=== PATIENT | male | born 1965 | race Caucasian/White ===

== ENCOUNTER 2023-07-29 15:23 | Emergency (ER) | payer BC ==
--- NOTE | 2023-07-29 15:35 | ED ---
Lower Extremity Injury HPI - General Source: patient, RN notes reviewed Mode of arrival: ambulatory Limitations: no limitations <Papo Verduzco - Last Filed: 07/29/23 15:34> - General Source: patient, RN notes reviewed Mode of arrival: ambulatory Limitations: no limitations - History of Present Illness MD Complaint: knee injury <Carmina Vazquez - Last Filed: 07/29/23 21:44> - General Chief Complaint: Extremity Injury, Lower Stated Complaint: left knee pain Time Seen by Provider: 07/29/23 15:34 - History of Present Illness Initial Comments: 57-year-old male presents emergency Department chief complaint of left knee pain. Patient states he was stepping down off a curb when he felt his knee pop. Patient states that the pain is in the front of his knee. Patient states he has had surgery on his left knee in the past. (Papo Verduzco) This is a 49-year-old male who presents to the emergency department for left knee pain. States that he went to step off of a curb, when he heard a pop, followed by severe pain. Describes the pain as primarily being around the patella. He previously had surgery with Dr. Yates, orthopedics, on that knee. He has not been able to walk easily since this occurred. (Carmina Vazquez) - Related Data Previous Rx's Medication Instructions Recorded HYDROcodone/APAP 5-325MG [[place] 1 tab PO Q6HR PRN 3 Days #12 tab 07/29/23 5-325] Ibuprofen [Motrin] 800 mg PO Q8H PRN #30 tab 07/29/23 Allergies Allergy/AdvReac Type Severity Reaction Status Date / Time No Known Allergies Allergy Verified 07/29/23 15:33 Review of Systems ROS Other: All systems not noted in ROS Statement are negative. <Papo Verduzco - Last Filed: 07/29/23 15:34> ROS Other: All systems not noted in ROS Statement are negative. <Carmina Vazquez - Last Filed: 07/29/23 21:44> ROS Statement: Those systems with pertinent positive or pertinent negative responses have been documented in the HPI. Past Medical History Past Medical History: No Reported History History of Any Multi-Drug Resistant Organisms: None Reported Past Surgical History: Hernia Repair, Orthopedic Surgery Smoking Status: Never smoker Past Alcohol Use History: None Reported Past Drug Use History: None Reported <Papo Verduzco - Last Filed: 07/29/23 15:34> General Exam Limitations: no limitations General appearance: alert, in no apparent distress Head exam: Present: atraumatic, normocephalic, normal inspection Neck exam: Present: normal inspection, full ROM. Absent: tenderness, meningismus, lymphadenopathy <Papo Verduzco - Last Filed: 07/29/23 15:34> Limitations: no limitations General appearance: alert, in no apparent distress Head exam: Present: atraumatic, normocephalic, normal inspection Respiratory exam: Present: normal lung sounds bilaterally. Absent: respiratory distress, wheezes, rales, rhonchi, stridor Cardiovascular Exam: Present: regular rate, normal rhythm, normal heart sounds. Absent: systolic murmur, diastolic murmur, rubs, gallop, clicks Extremities exam: Present: other (Tenderness to palpation over the left patella. Range of motion limited by pain. No overlying swelling or deformities. 2+ DP and PT pulses. Capillary refill less than 1 second.) Neurological exam: Present: alert, oriented X3, CN II-XII intact Psychiatric exam: Present: normal affect, normal mood Skin exam: Present: warm, dry, intact, normal color. Absent: rash <Carmina Vazquez - Last Filed: 07/29/23 21:44> - General Exam Comments Initial Comments: Visual Physical Exam Vital signs reviewed General: Well-appearing, nontoxic, no acute distress. Head: Normocephalic, atraumatic Eyes: PERRLA, EOMI ENT: Airway patent Chest: Nonlabored breathing Skin: No visual rash, normal skin tone Neuro: Alert and oriented 3 Musculoskeletal: No gross abnormalities (Papo Verduzco) Course Vital Signs 07/29/23 07/29/23 15:30 20:00 Temperature 98 F Pulse Rate 80 78 Respiratory 16 18 Rate Blood Pressure 193/91 133/91 O2 Sat by Pulse 98 95 Oximetry Medical Decision Making <Papo Verduzco - Last Filed: 07/29/23 15:34> - Radiology Data Radiology results: report reviewed, image reviewed <Carmina Vazquez - Last Filed: 07/29/23 21:44> - Medical Decision Making I completed the quick note portion of this chart signed Papo Verduzco PA-C (Papo Verduzco) This is a 57-year-old male who presents to the emergency department for left knee pain. Was pt. sent in by a medical professional or institution? @ -No Did you speak to anyone other than the patient for history? @ -No Did you review nursing and triage notes? @ -Yes, and I agree, it is accurate with regards to the patient's symptoms. Were old charts reviewed? @ -No Differential Diagnosis? @ -Differential Musculoskeletal: Muscular strain, contusion, ligament sprain, fracture, arthritis, septic arthritis, bursitis, cellulitis, muscle spasm, nerve compression, DVT, arterial occlusion, herpes zoster, electrolyte abnormality, tumor.... This is not meant to be in all inclusive list EKG interpreted by me (3pts min.)? @ -Not obtained X-rays interpreted by me (1pt min.)? @ -X-ray of the left knee obtained. My interpretation identifies no acute fractures. CT interpreted by me (1pt min.)? @ -Not obtained U/S interpreted by me (1pt. min.)? @ -Not obtained What testing was considered but not performed? (CT, X-rays, U/S, labs)? Why? @ -None What meds were considered but not given? Why? @ -None Did you discuss the management of the patient with other professionals? @ -No Did you reconcile home meds? @ -No Was smoking cessation discussed for >3mins.? @ -No Was critical care preformed (if so, how long)? @ -No Were there social determinants of health that impacted care today? How? (Homelessness, low income, unemployed, alcoholism, drug addiction, transportation, low edu. Level, literacy, decrease access to med. care, care home, rehab)? @ -No Was there de-escalation of care discussed even if they declined? (Discuss DNR or withdrawal of care, Hospice)? @ -No What co-morbidities impacted this encounter? (DM, HTN, Smoking, COPD, CAD, Cancer, CVA, Hep., AIDS, mental health diagnosis, sleep apnea, morbid obesity)? @ -None Was patient admitted / discharged? @ -Discharged. X-ray of the left knee obtained revealing no acute process. We discussed that this does not exclude the possibility of problems with ligaments or his meniscus. Patient's pain was well-controlled in the emergency department and he was given a knee immobilizer. He was able to ambulate afterwards. Prescription for ibuprofen and [place] provided with dosing instructions reviewed. He is advised to take the [place] sparingly when his pain is the most severe and to otherwise alternate with Tylenol. He is also advised to follow-up with Dr. Yates, orthopedics for further evaluation. Undiagnosed new problem with uncertain prognosis? @ -None Drug Therapy requiring intensive monitoring for toxicity (Heparin, Nitro, Insulin, Cardizem)? @ -None Were any procedures done? @ -None Diagnosis/symptom? @ -Left knee sprain Acute, or Chronic, or Acute on Chronic? @ -Acute Uncomplicated (without systemic symptoms) or Complicated (systemic symptoms)? @ -Uncomplicated Side effects of treatment? @ -None Exacerbation, Progression, or Severe Exacerbation] @ -Not applicable Poses a threat to life or bodily function? @ -This may have an impact on his ability to ambulate for the mean time. Return precautions reviewed in depth, the patient is instructed to return to the emergency department with any new, worsening, or concerning symptoms. Patient verbalized understanding. This case was discussed in detail with the attending ED physician, Dr. Orozco. Presentation, findings, and treatment plan discussed in detail as well. (Carmina Vazquez) Disposition <Papo Verduzco - Last Filed: 07/29/23 15:34> Is patient prescribed a controlled substance at d/c from ED?: Yes When asked, does pt state using other controlled substances?: No If prescribed controlled substance>3 days was MAPS reviewed?: Prescribed <3 Days <Carmina Vazquez - Last Filed: 07/29/23 21:44> Clinical Impression: Left knee sprain Disposition: HOME SELF-CARE Instructions (If sedation given, give patient instructions): Knee Sprain (ED), Knee Pain (ED) Additional Instructions: Return to the emergency department with any new, worsening, or concerning symptoms. Alternate with ibuprofen and Tylenol as needed for pain relief. Take the [place] sparingly when your pain is the most severe and be aware that it may make you drowsy. Contact Dr. Yates, orthopedics, for follow-up appointment. Prescriptions: Ibuprofen [Motrin] 800 mg PO Q8H PRN #30 tab PRN Reason: Pain HYDROcodone/APAP 5-325MG [[place] 5-325] 1 tab PO Q6HR PRN 3 Days #12 tab PRN Reason: Pain Referrals: None,Stated [Primary Care Provider] - 1-2 days Seamus Yates MD [STAFF PHYSICIAN] - 1-2 days Forms: Work/School Release
[2023-07-29 15:44] VITALS: TEMP 98
--- NOTE | 2023-07-29 16:00 | XR ---
EXAMINATION TYPE: XR knee complete LT DATE OF EXAM: 07/29/2023 COMPARISON: NONE HISTORY: Pain TECHNIQUE: Three views are submitted. FINDINGS: Severe narrowing of the medial compartment and patellofemoral compartment and the joint space with sp urring. No erosive changes. Osseous structures are intact. No acute fracture seen. IMPRESSION: 1. No acute fracture or dislocation. 2. Severe osteoarthritis.
[2023-07-29] MEDS ORDERED: HYDROcodone/APAP 7.5-325MG 1 EACH TAB PO ONE (19:15)
[2023-07-29] MEDS ORDERED: DEXAMETHASONE SOD PHOSPHATE 10 MG/ML 1 ML VIAL IM STA (19:15)
[2023-07-29] MEDS ORDERED: KETOROLAC 15 MG/ML 1 ML VIAL IM STA (19:15)
[2023-07-29 21:10] VITALS: BP 133/91; PULSE 78; RESP 18
== END 2023-07-29 20:59 | disposition home or self-care (01) ==
LOC: EC 15:23
DX: S83.92XA Sprain of unspecified site of left knee, initial encounter (principal); W10.8XXA Fall (on) (from) other stairs and steps, initial encounter
CPT/HCPCS: 73562; 99283; 96372 ×2; L1830; J1100; J1885

== ENCOUNTER → 2023-10-16 | Outpatient (CLI) | payer BC ==
[2023-10-16 18:59] LABS: HCT 48.3 % (39.6-50.0); HGB 15.5 g/dL (13.0-17.0); MCH 26.9 pg (27.0-32.0); MCHC 32.1 g/dL (32.0-37.0); MCV 83.9 FL (80.0-97.0); Mean Platelet Volume 8.9 FL (9.5-12.2); NRBC Per 100 WBC 0 X 10*3/uL (0.00-0.01); Platelet Count 272 X 10*3/uL (140-440); RBC 5.76 X 10*6/uL (4.40-5.60); RDW 14.3 % (11.5-14.5); WBC 7.78 X 10*3/uL (4.50-10.00)
[2023-10-16 20:19] LABS: ALT 23 U/L (10-49); AST 18 U/L (14-35); Albumin 4.1 g/dL (3.8-4.9); Albumin/Globulin Ratio 1.64 Ratio (1.60-3.17); Alkaline Phosphatase 95 U/L (41-126); BUN/Creat Ratio 22.09 Ratio (12.00-20.00); Blood Urea Nitrogen 24.3 mg/dL (9.0-27.0); Calcium 9.7 mg/dL (8.7-10.3); Carbon Dioxide 21.8 mmol/L (21.6-31.8); Chloride 104 mmol/L (96-109); Globulin 2.5 g/dL (1.6-3.3); Glucose 127 mg/dL (70-110); Potassium 4.4 mmol/L (3.5-5.5); Sodium 139 mmol/L (135-145); Total Bilirubin 0.2 mg/dL (0.3-1.2); Total Protein 6.6 g/dL (6.2-8.2)
== END | disposition home or self-care (01) ==
LOC: LABWHC1 14:27
PROVIDERS: ATTEND Surgery Plastic and Reconstructive Surgery
DX: Z01.89 Encounter for other specified special examinations (principal)
CPT/HCPCS: 36415; 80053; 85027; 93005

== ENCOUNTER 2023-11-05 12:40 | Day surgery (SDC) | payer BC ==
[~2023-11-05 12:40] MED LIST: ONDANSETRON 4 MG/2 ML VIAL IVP PRN
--- NOTE | 2023-11-05 13:08 | P.GSHP ---
History of Present Illness H&P Date: 11/05/23 CHIEF COMPLAINT: Ventral hernia HISTORY OF PRESENT ILLNESS: The patient is a 57-year-old male presents with a history of swelling and pain along the abdomen from a hernia of the abdomen. Symptoms have been present for over 1 year months. Now he presents for surgical intervention. PAST MEDICAL HISTORY: Please see list. PAST SURGICAL HISTORY: Please see list. MEDICATIONS: Please see list. ALLERGIES: Please see list. SOCIAL HISTORY: No illicit drug use FAMILY HISTORY: No reports of Crohn disease or ulcerative colitis. REVIEW OF ORGAN SYSTEMS: CONSTITUTIONAL: Denies any fever or chills. Has morbid obesity, BMI 51.7 Has morbid obesity, BMI 51.7 HEENT: Denies any trouble with vision, hearing or nosebleeds. No difficulty swallowing. LYMPHATIC: The patient denies any lumps and bumps around the neck. ENDOCRINE: Denies any thyroid disorders. Denies any blood sugar glucose intolerance. RESPIRATORY: Denies pneumonia. Denies any troubles with breathing or dyspnea on exertion. CARDIOVASCULAR: Denies any chest pain, palpitations, or recent heart attacks. GASTROINTESTINAL: Denies heart burn, constipation or bright red blood per rectum. GENITOURINARY: Denies any blood in urine or increased urinary frequency. MUSCULOSKELETAL: Denies any back pain, stiffness, joint arthritis. NEUROLOGIC: Denies any numbness or tingling along the distal extremities. No seizure disorders or headaches. PSYCHIATRIC: Denies depression or suidical ideation. HEMATOLOGIC: Denies any abnormal bleeding or bruising. BREASTS: Denies any breast lumps, pain or nipple discharge. PHYSICAL EXAM: GENERAL: Well-developed pleasant male in no acute distress. HEENT: No scleral icterus. Extraocular movements grossly intact. Moist buccal mucosa. NECK: Supple without lymphadenopathy. CHEST: Unlabored respirations. Equal bilateral excursions. CARDIOVASCULAR: Regular rate and rhythm. Distal 2+ pulses. ABDOMEN: Soft, nondistended. Palpable defect of the abdomen. No peritoneal signs. MUSCULOSKELETAL: No clubbing, cyanosis, or edema. SKIN: Well perfused. PSYCH: Alert and oriented to self, place and time ASSESSMENT: 1. Ventral hernia 2. Morbid obesity due to excess calories, BMI 51.7 PLAN: 1. Recommend proceeding with robotic ventral hernia repair with mesh. 2. Benefits and risks of surgical intervention was discussed including possibility of open technique. 3. DVT prophylaxis. 4. Antibiotic prophylaxis. 5. Non narcotic pain management including abdominal wall block described 6. Blood sugar glucose described. 7. Weight loss management described. 8. He is elevated risk due to comorbidities and BMI over 40 Past Medical History Past Medical History: No Reported History Additional Past Medical History / Comment(s): piece of tissue under liver that caused internal bleeding at age 17, incisional hernia from laparotomy, Lt. knee injury 07/23 History of Any Multi-Drug Resistant Organisms: None Reported Past Surgical History: Orthopedic Surgery Additional Past Surgical History / Comment(s): laparotomy, Lt. knee arthrosopy x 2 Past Anesthesia/Blood Transfusion Reactions: Postoperative Nausea & Vomiting (PONV) Smoking Status: Never smoker - Past Family History Mother Family Medical History: Cancer Additional Family Medical History / Comment(s): lung,brain cancer Father Family Medical History: Cancer Additional Family Medical History / Comment(s): liver Medications and Allergies Home Medications Medication Instructions Recorded Confirmed Type HYDROcodone/APAP 5-325MG [[place] 1 tab PO Q6HR PRN 3 Days #12 tab 07/29/23 10/30/23 Rx 5-325] Ibuprofen [Motrin] 800 mg PO Q8H PRN #30 tab 07/29/23 10/30/23 Rx Allergies Allergy/AdvReac Type Severity Reaction Status Date / Time No Known Allergies Allergy Verified 07/29/23 15:33
[2023-11-05] MEDS: LACTATED RINGERS 1,000 ML IV SCH (13:13)
[2023-11-05] MEDS: DEXAMETHASONE SOD PHOSPHATE 4 MG/ML 1 ML VIAL IV ONE (13:22)
[2023-11-05] MEDS: ACETAMINOPHEN TAB 500 MG TAB PO PRN (13:22)
[2023-11-05] MEDS: TAMSULOSIN 0.4 MG CAP.ER.24H PO STA (13:23)
[2023-11-05] MEDS: MELOXICAM 7.5 MG TAB PO PRN (13:23)
[2023-11-05] MEDS: ONDANSETRON 4 MG/2 ML VIAL IVP ONE (13:23)
[2023-11-05] MEDS: FAMOTIDINE 20 MG/2 ML VIAL IVP ONE (13:51)
[2023-11-05] MEDS: MIDAZOLAM 2 MG/2 ML VIAL IVP ONE (13:57)
[2023-11-05] MEDS: fentaNYL (PF) 50 MCG/ML 2 ML AMP IVP ONE ×2 (14:00→14:04)
[2023-11-05] MEDS: HEPARIN SODIUM,PORCINE 5,000 UNIT/ML 1 ML VIAL SQ PRN (14:16)
--- NOTE | 2023-11-05 14:21 | P.ANPRN ---
Procedure Note - Anesthesia - Nerve Block Performed Bilateral Erector Spinae Single Time Out Performed: Yes Date of Procedure: 11/05/23 Procedure Start Time: 13:56 Procedure Stop Time: 14:03 Location of Patient: PreOp Indication: Acute Post-Operative Pain, Analgesia, Requested by Surgeon Sedation Type: Sedate with meaningful contact maintained Preparation: Sterile Prep Position: Prone Catheter: None Needle Types: Pajunk Needle Gauge: 21 Ultrasound used to visualize needle placement: Yes Ultrasound used to observe medication spread: Yes Injectate: 0.5% Ropivacaine (see comment for volume) (Ropiv 20 ml + decadron 4mg ---each side.) Blood Aspirated: No Pain Paresthesia on Injection Noted: No Resistance on Injection: Normal Image Stored and Saved: Yes Events: Uneventful and Well Tolerated
[2023-11-05] MEDS: LIDOCAINE 2%-EPI 1:100,000 20 ML VIAL SQ ONE (14:41)
[2023-11-05] MEDS ORDERED: LIDOCAINE 1% INJ 10MG/ML (20 ML MDV) ONE (14:48)
[2023-11-05] MEDS ORDERED: SUCCINYLCHOLINE CHLORIDE 200 MG/10 ML VIAL IV ONE (14:48)
[2023-11-05] MEDS ORDERED: GLYCOPYRROLATE 0.2 MG/ML 2 ML VIAL ONE (14:48)
[2023-11-05] MEDS ORDERED: PHENYLEPHRINE-0.9% NACL SYG 1,000 MCG/10 ML SYRINGE ONE (14:48)
[2023-11-05] MEDS ORDERED: PROPOFOL 10 MG/ML 20 ML VIAL IV ONE (14:48)
[2023-11-05] MEDS ORDERED: DEXAMETHASONE SOD PHOSPHATE 4 MG/ML 1 ML VIAL ONE (14:48)
[2023-11-05] MEDS ORDERED: HYDROmorphone (PF) 1 MG/ML ONE (14:48)
[2023-11-05] MEDS ORDERED: NEOSTIGMINE 1 MG/ML 10 ML VIAL ONE (14:48)
[2023-11-05] MEDS ORDERED: fentaNYL (PF) 50 MCG/ML 2 ML AMP ONE (14:48)
[2023-11-05] MEDS ORDERED: ROPIVACAINE 5 MG/ML 30 ML VIAL ONE (14:48)
[2023-11-05] MEDS ORDERED: ROCURONIUM 10 MG/ML (5 ML VIAL) IV ONE (14:48)
[2023-11-05] MEDS ORDERED: KETAMINE HCL IN 0.9 % NACL 50 MG/5 ML SYRINGE ONE (14:48)
[2023-11-05] MEDS: ceFAZolin 3 GM in SODIUM CHLORIDE 0.9% 100 ML IVPB PRN (14:51)
[2023-11-05] MEDS: HYDROmorphone 0.5 MG/0.5 ML SYRINGE IVP PRN (16:37)
--- NOTE | 2023-11-05 16:54 | P.OP ---
Date of Procedure: 11/05/23 Description of Procedure: SURGEON: RAMONITA KELLER MD PREOPERATIVE DIAGNOSES: 1. Initial incisional hernia with incarceration 2. Morbid obesity due to excess calories, BMI 52.3 POSTOPERATIVE DIAGNOSES: 1. Initial incisional hernia with incarceration, 12-cm 2. Morbid obesity due to excess calories, BMI 52.3 3. Abdominal wall/peritoneal adhesions, midline OPERATION: 1. Robotic-assisted da Robin Xi laparoscopic repair of initial incarcerated incisional ventral hernia with mesh, ventralight ST mesh 11.4 cm 2. Robotic-assisted da Robin Xi laparoscopic lysis of adhesions Anesthesia: GETA, regional, local Estimated Blood Loss (ml): 5 Pathology: None. COMPLICATIONS: None. Operative Findings: 1. Subcutaneous defect 12 cm from incarcerated incisional hernia 2. Incarcerated omentum within incisional hernia defect 2 x 3 cm 3. Fascia repaired using #1 V-lock suture 4. Moderate abdominal wall ventral adhesions INDICATIONS: The patient is a 57-year-old male who presents with a personal history of large abdominal wall hernia. Surgical intervention with laparoscopic versus robotic and open techniques were reviewed. Placement of mesh was also reviewed. Benefits and risks were thoroughly described. Informed consent was obtained. DESCRIPTION OF PROCEDURE: The patient was brought into the operating room and laid in supine position. After general induction, the abdomen had been prepped and draped in standard sterile fashion. Ioban draping was also placed. Prior to incision, a timeout protocol was confirmed with surgical team regarding the patient's name including procedures to be performed. The robot was primed prior to the procedure. A field block using local anesthetic was placed along hernia site including the proposed port sites. Initial incision was made with an #11 blade along the left upper quadrant. A 0 degree 5 mm laparoscopic trocar entry was performed and insufflated. Three 8 mm ports were placed along the left lateral abdominal wall under direct localization after exchanging the 5-mm for an 8 mm port. Placements of the ports were 15 cm from the target anatomy and 10 cm apart. An accessory 12 mm port was placed at the left upper quadrant for exchange of mesh including sutures. The Flight Stewardi Xi robot was previously primed, prepped and draped then docked from the right side of the patient onto the left side of the patient. I then sat at the robot Mului Xi console where working arms of the robot including Bovie cautery connected to robotic scissors, needle delivery route driver, and graspers placed by the assistant branch manager. Moderate abdominal wall adhesions involving omentum to abdominal wall was found. Adhesions were addressed to send vessel sealer sharply. Incarcerated omental contents were found of the upper midline incisional hernia. Subcutaneous defect pocket was 12 cm. The defect was reduced with incisional hernia defect 2 x 3 cm. The incarcerated contents were reduced as the peritoneal fat was cleaned from the abdominal wall. Next, hemostasis was checked with cautery. The hernia defect was oversewn using #1 nonabsorbable V-lock suture with fascial imbrication x 3. Next, ventralight ST mesh 11.4 cm was placed with the rough side towards the abdominal wall. 2-0 VLOC 12 inch green sutures were used to fixate the mesh. A final endoscopic imaging was obtained. All instruments and pneumoperitoneum were evacuated from the abdominal cavity. The da Robin Xi robot was undocked from the patient. I re-scrubbed into the case for closure of incisions. The fascia of the 12-mm port was probed and less than 8-mm in size. The incisions were reapproximated using 4-0 Monocryl in an interrupted subcuticular fashion. Liquid glue was applied to the skin after cleansing the skin with normal saline and dilute hydrogen peroxide. An abdominal binder was placed. At the end of the procedure, needle, sponge, and instrument count had been verified correct by operating room surgical technician. The patient was taken to the postanesthesia care unit in stable condition. Plan - Discharge Summary Discharge Rx Participant: Yes New Discharge Prescriptions: New Ibuprofen [Motrin] 600 mg PO Q8HR PRN #30 tab PRN Reason: Pain Acetaminophen Tab [Tylenol Tab] 1,000 mg PO Q6HR PRN #30 tablet PRN Reason: Pain Simethicone [Gas-X] 125 mg PO AC-TID PRN #20 capsule PRN Reason: Pain Cyclobenzaprine [Flexeril] 10 mg PO TID #30 tab Continue HYDROcodone/APAP 5-325MG [[place] 5-325] 1 tab PO Q6HR PRN 3 Days #12 tab PRN Reason: Pain Discontinued Ibuprofen [Motrin] 800 mg PO Q8H PRN #30 tab PRN Reason: Pain Discharge Medication List HYDROcodone/APAP 5-325MG [[place] 5-325] 1 tab PO Q6HR PRN 3 Days #12 tab 07/29/23 [Rx] Acetaminophen Tab [Tylenol Tab] 1,000 mg PO Q6HR PRN #30 tablet 11/05/23 [Rx] Cyclobenzaprine [Flexeril] 10 mg PO TID #30 tab 11/05/23 [Rx] Ibuprofen [Motrin] 600 mg PO Q8HR PRN #30 tab 11/05/23 [Rx] Simethicone [Gas-X] 125 mg PO AC-TID PRN #20 capsule 11/05/23 [Rx] Follow up Appointment(s)/Referral(s): Ramonita Keller MD [STAFF PHYSICIAN] - 11/10/23 3:30 pm Patient Instructions/Handouts: Laparoscopic Herniorrhaphy (PRE), Ventral Hernia Repair (DC), Abdominal Binder (DC) Activity/Diet/Wound Care/Special Instructions: Using antibacterial soap. No lifting over 4 pounds 4 weeks, December 06, 2023December shower. No bathtub soaks, swimming for 2 weeks, November 18 Wear abdominal binder daily for comfort except for showering. Use ice along incisions for today to prevent swelling. Take tylenol, aleve/ibuprofen, simethicone scheduled for 3 days for best pain relief Discharge Disposition: HOME SELF-CARE
[2023-11-05 16:55] VITALS: TEMP 97.3
[2023-11-05 18:30] VITALS: RESP 20
[2023-11-05 19:00] VITALS: BP 117/58; PULSE 92
== END 2023-11-05 19:15 | disposition home or self-care (01) ==
LOC: OR 12:40
PROVIDERS: ATTEND Surgery Plastic and Reconstructive Surgery
DX: K43.0 Incisional hernia with obstruction, without gangrene (principal); E66.01 Morbid (severe) obesity due to excess calories; K66.0 Peritoneal adhesions (postprocedural) (postinfection); Z68.43 Body mass index [BMI] 50.0-59.9, adult; Z98.890 Other specified postprocedural states
CPT/HCPCS: 49596; 64999; C1781; J2250; J0330; J1644; J1100; J2710; J0690; J2405; J2001; J3010; J3490; J1170 ×2; J2795; J2704; J2371

== ENCOUNTER 2024-01-07 08:40 | Day surgery (SDC) | payer BC ==
[2024-01-04 12:52] VITALS: BMI 52.2
--- NOTE | 2024-01-05 08:48 | P.HPOR ---
History of Present Illness H&P Date: 01/05/24 Subjective: This is a 57 year old male that presents today for initial evaluation regarding a 2 year history of a progressively enlarging soft tissue mass present on the ulnar aspect of the left middle finger. He states he first noticed this over several years ago after having a splinter lodged into the subcutaneous tissues of his finger. He notes that the mass since then has been enlarging and growing. He states it is not painful. He denies any history of gout. He has some occasional numbness at the tip of the finger distal to the mass. 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 Physical Examination: RUE: AIN/PIN/Radial/Ulnar/Median motor intact. Radial/Ulnar/Median SILT. 2+/4 Radial/Ulnar pulses palpated. 5/5 APB, 5/5 FDI. Negative Finkelsteins, negative CMC grind, negative Durkan's compression. Large 2x3cm multilobulated mass p resent around distal aspect of middle phalanx along ulnar boarder of middle finger. Mild decreased sensation at distal tip of ulnar boarder of digit. Imaging: X-Rays of the right middle finger 2V taken in office today demonstrate a 2.3x 2cm soft tissue mass protruding from the ulnar aspect of the middle finger at the level of the middle phalanx. No geno involvement present or erosion of surrounding middle phalanx seen. Impression: 1.) Right middle finger soft tissue mass. Plan: Diagnosis and treatment options were discussed with the patient. He states he would like to have the mass removed due to its increasing size. He is scheduled for a right middle finger soft tissue mass excision. Risks and benefits of surgery including bleeding, infection, damage to surrounding tissue, need for further surgery, residual numbness were discussed and the patient wished to go forward with surgery. The patient was agreeable with this plan. CC: Huang Bragg MD -Thierry Escobedo DO Orthopedic Hand/Upper Extremity Surgeon Past Medical History Past Medical History: No Reported History Additional Past Medical History / Comment(s): "Hx piece of tissue under liver that caused internal bleeding at age 17". Bilateral knee pain/problems. History of Any Multi-Drug Resistant Organisms: None Reported Past Surgical History: Hernia Repair, Orthopedic Surgery Additional Past Surgical History / Comment(s): Laparotomy, left knee arthrosopy X2, ventral hernia repair. Past Anesthesia/Blood Transfusion Reactions: Postoperative Nausea & Vomiting (PONV) Smoking Status: Never smoker - Past Family History Mother Family Medical History: Cancer Additional Family Medical History / Comment(s): Lung and brain cancer. Father Family Medical History: Cancer Additional Family Medical History / Comment(s): Liver cancer. Medications and Allergies Home Medications Medication Instructions Recorded Confirmed Type Ibuprofen 800 mg PO Q8H PRN 01/04/24 01/04/24 History Allergies Allergy/AdvReac Type Severity Reaction Status Date / Time No Known Allergies Allergy Verified 01/04/24 11:47 Physical Examination Osteopathic Statement: *. No significant issues noted on an osteopathic structural exam other than those noted in the History and Physical/Consult.
[~2024-01-07 08:40] MED LIST changes: +HYDROmorphone 0.5 MG/0.5 ML SYRINGE IVP PRN; +LACTATED RINGERS 1,000 ML IV SCH; -ONDANSETRON 4 MG/2 ML VIAL IVP PRN
[2024-01-07 09:08] VITALS: TEMP 97.2
[2024-01-07] MEDS: ONDANSETRON 4 MG/2 ML VIAL IVP ONE (09:18)
[2024-01-07] MEDS: LACTATED RINGERS 1,000 ML IV ONE (09:19)
[2024-01-07] MEDS ORDERED: fentaNYL (PF) 50 MCG/ML 2 ML AMP ONE (09:48)
[2024-01-07] MEDS: BUPIVACAINE (PF) 0.5% 30 ML VIAL SQ ONE ×2 (09:48→09:54)
[2024-01-07] MEDS ORDERED: MIDAZOLAM 2 MG/2 ML VIAL ONE (09:48)
[2024-01-07] MEDS ORDERED: PROPOFOL 10 MG/ML 20 ML VIAL IV ONE (09:48)
[2024-01-07] MEDS: LIDOCAINE 2% INJ 20 MG/ML SQ ONE ×2 (09:48→09:54)
[2024-01-07] MEDS: ceFAZolin 3 GM in SODIUM CHLORIDE 0.9% 100 ML IVPB PRN (09:48)
[2024-01-07 11:25] VITALS: BP 118/81; PULSE 82; RESP 18
--- NOTE | 2024-01-07 20:25 | P.OP ---
Date of Procedure: 01/07/24 Preoperative Diagnosis: 1.) Right middle finger soft tissue mass Postoperative Diagnosis: 1.) Right middle finger soft tissue mass Procedure(s) Performed: 1.) Right middle finger soft tissue mass excision, deep, subfascial, intra- articular. (29123) 2.) Right middle finger adjacent tissue re-arrangement, hand, less than 10sq cm. ([id number]) Anesthesia: MAC Surgeon: Thierry Escobedo Property Claims Manager #1: Xavier Reyes Estimated Blood Loss (ml): 0 Pathology: none sent (Right middle finger mass) Condition: stable Disposition: PACU Description of Procedure: This is a 58 year old male who presents today for a right middle finger soft tissue mass excision. Risks and benefits of surgery were discussed with the patient including bleeding, damage to surrounding tissue, infection, need for further surgery as well as risks of anesthesia including pulmonary embolism and even and the patient wished to proceed with surgical intervention. The patient was seen in the pre-operative area by myself. Consent and H&P were completed and updated. The correct extremity was marked in the pre-operative area by myself and all other questions were answered. Operative Narrative: The patient was brought to the operating room by the department of anesthesia. They remained on the portable stretcher and a rolling hand table was brought to the side of the operative extremity. Pre-operative time out was performed indicating the correct patient, procedure and laterality. All in the room agreed. Pre-operative antibiotics were given prior to skin incision. The patient was then drifted off to sleep by the department of anesthesia. Digital block was performed with 7cc's of 0.5% Lidocaine and 1% lidocaine in a 50:50 mixture. A nonsterile tourniquet was then applied to the operative extremity and the right upper extremity was then prepped and draped in normal sterile fashion. The operative extremity was the exsanguinated with an esmarch bandage and the tourniquet was inflated to 250mmHg. A curvlinear incision was made over the ulnar boarder of the middle finger over the area of maximal prominence with a 15 blade scalpel. A multilobulated yellow/white mass was then identified immediately under the skin which was sitting superficial to the terminal extensor tendon and wrapping around the ulnar boarder of the digit to the volar surface of the distal flexor tendon sheath and encased around the ulnar neurovascular bundle. Meticulous hemostasis was achieved with bovie cautery. Blunt and sharp dissection was taken around the peripheral portions of the mass. There was a stalk that entered the DIP joint. The mass was excised at the stalk and bovie cautery was used to bovie the stalk at the opening of the joint. The mass measured 3.5 cmx 2.5cm and was found to have intra-articular extension and was sent to pathology. There was abundant excess skin after the mass was excised. Digital neurovascular bundle was identified and found to be intact at the end of the procedure. The excess skin was excised with sharp scissors and a local advancement and reearangement of the skin newly contoured skin flaps was performed to approximate the wound edges with appropriate tension. Skin closure was performed with 4-0 nylon suture. Soft dressing with adaptic, 4x4s and finger stockinette was applied. Tourniquet was let down and all bleeding was controlled. The patient was then woken by the department of anesthesia and transferred to PACU in stable condition. Xavier CUMMINGS was present to assist in protection of neurovascular structures. Thierry Escobedo D.O. Orthopedic Hand/Upper Extremity Surgeon
== END 2024-01-07 11:27 | disposition home or self-care (01) ==
LOC: OR 08:40
PROVIDERS: ATTEND Orthopaedic Surgery Hand Surgery
DX: R22.31 Localized swelling, mass and lump, right upper limb (principal)
CPT/HCPCS: 88305; 26111; J2001; J2250; J0690; J2405; J3010; J2704; J0665